=== PATIENT | female | born 1975 | race Caucasian/White ===

== ENCOUNTER 2017-06-19 12:45 | Emergency (ER) | payer BC, MEDICAID | END 2017-06-19 14:18 | disposition home or self-care (01) | LOC: E/R 12:45 | DX: H60.501 Unspecified acute noninfective otitis externa, right ear (principal); I10 Essential (primary) hypertension; Z79.82 Long term (current) use of aspirin | CPT/HCPCS: 99283 ==

== ENCOUNTER 2017-06-21 18:36 | Inpatient (IN) | payer BC, MEDICAID ==
[2017-06-21 21:12] LABS: ADD MAN DIFF? NO
[2017-06-21 21:14] LABS: BASOPHILS % 0.4 % (0.0-2.0); EOSINOPHILS # 0.2 10^3/ul (0.0-0.5); EOSINOPHILS % 1.5 % (0.0-7.0); HEMATOCRIT 35.6 % (37.0-47.0); HEMOGLOBIN 11.2 g/dl (12.0-16.0); LYMPHOCYTES # 2.4 10^3/ul (0.8-2.9); MEAN CORPUSCULAR HEMOGLOBIN 24.1 pg (29.0-33.0); MEAN CORPUSCULAR HGB CONC 31.5 g/dl (32.0-37.0); MEAN CORPUSCULAR VOLUME 76.7 fl (82.0-101.0); MEAN PLATELET VOLUME 9.2 fl (7.4-10.4); MONOCYTES % 9.7 % (0.0-11.0); NEUTROPHIL # 6.4 10^3/ul (1.6-7.5); PLATELET COUNT 471 10^3/UL (140-415); RED BLOOD COUNT 4.64 10^6/ul (4.20-5.40); RED CELL DISTRIBUTION WIDTH 14.2 % (11.5-14.5)
[2017-06-21 21:33] LABS: ALANINE AMINOTRANSFERASE 21 IU/L (13-69); ALBUMIN 4.2 g/dl (3.3-4.9); ALBUMIN/GLOBULIN RATIO 1.16; ALKALINE PHOSPHATASE 79 IU/L (42-121); ANION GAP 17 (8-16); ASPARTATE AMINO TRANSFERASE 11 IU/L (15-46); BLOOD UREA NITROGEN 17 mg/dl (7-20); CALCIUM 9.4 mg/dl (8.4-10.2); CARBON DIOXIDE 27 mmol/L (21-31); CHLORIDE 105 mmol/L (97-110); CREATININE 0.79 mg/dl (0.44-1.00); GLUCOSE 103 mg/dl (70-220); POTASSIUM 4.2 mmol/L (3.5-5.1); SODIUM 145 mmol/L (135-144); TOTAL PROTEIN 7.8 g/dl (6.1-8.1)
[2017-06-22] MEDS: VANCOMYCIN 1 GM (PMX) 250 ML IVPB (00:22)
[2017-06-22] MEDS ORDERED: ACETAMINOPHEN 325 MG TAB PO (01:30)
[2017-06-22] MEDS ORDERED: BISACODYL (EC) 5 MG TAB PO (01:30)
[2017-06-22] MEDS ORDERED: MAGNESIUM HYDROXIDE 30ML CUP PO (01:30)
[2017-06-22] MEDS ORDERED: NACL 0.9% 3 ML SYG IV (01:30)
[2017-06-22] MEDS ORDERED: DOCUSATE SODIUM 100 MG CAP PO (01:30)
[2017-06-22] MEDS ORDERED: VANCOMYCIN IV PER PHARMACY XX (01:30)
[2017-06-22] MEDS ORDERED: KETOROLAC 30 MG INJ IV (01:30)
[2017-06-22] MEDS ORDERED: HYDROmorphONE 0.5 MG/0.5 ML SYG IV (01:30)
[2017-06-22] MEDS: SOD CHLORIDE 0.9% 1,000 ML IV (01:51)
[2017-06-22] MEDS: PIPER-TAZO 3.375 GM IV (PMX) 100 ML IVPB ×4 (07:15→19:26)
[2017-06-22] MEDS: ATORVASTATIN 20 MG TAB PO (08:50)
[2017-06-22] MEDS: CYCLOBENZAPRINE 10 MG TAB PO (08:51)
[2017-06-22] MEDS: ASPIRIN (EC) 81 MG TAB PO (08:51)
[2017-06-22] MEDS: AMLODIPINE 5 MG TAB PO (08:51)
[2017-06-22] MEDS: FAMOTIDINE 20 MG TAB PO ×2 (08:51→20:33)
[2017-06-22] MEDS: VANCOMYCIN 750 MG in DEXTROSE 5% 150 ML IVPB ×2 (09:27→17:01)
[2017-06-22] MEDS ORDERED: CYCLOBENZAPRINE 10 MG TAB PO (11:30)
[2017-06-23] MEDS: PIPER-TAZO 3.375 GM IV (PMX) 100 ML IVPB ×5 (00:16→19:41)
[2017-06-23 00:51] LABS: VANCOMYCIN,TROUGH 13.3 ug/ml (10.0-20.0)
[2017-06-23] MEDS: VANCOMYCIN 750 MG in DEXTROSE 5% 150 ML IVPB ×3 (01:33→17:55)
[2017-06-23 05:30] LABS: ADD MAN DIFF? NO
[2017-06-23 05:37] LABS: BASOPHILS % 0.6 % (0.0-2.0); EOSINOPHILS # 0.3 10^3/ul (0.0-0.5); EOSINOPHILS % 3.9 % (0.0-7.0); HEMATOCRIT 32.3 % (37.0-47.0); HEMOGLOBIN 10.2 g/dl (12.0-16.0); LYMPHOCYTES # 2.1 10^3/ul (0.8-2.9); LYMPHOCYTES % 31.6 % (15.0-51.0); MEAN CORPUSCULAR HEMOGLOBIN 24.3 pg (29.0-33.0); MEAN CORPUSCULAR HGB CONC 31.6 g/dl (32.0-37.0); MEAN CORPUSCULAR VOLUME 77.1 fl (82.0-101.0); MEAN PLATELET VOLUME 9.3 fl (7.4-10.4); MONOCYTE # 0.8 10^3/ul (0.3-0.9); MONOCYTES % 12.6 % (0.0-11.0); NEUTROPHIL # 3.4 10^3/ul (1.6-7.5); PLATELET COUNT 418 10^3/UL (140-415); RED BLOOD COUNT 4.19 10^6/ul (4.20-5.40); RED CELL DISTRIBUTION WIDTH 14.2 % (11.5-14.5)
[2017-06-23 05:37] LABS: WHITE BLOOD COUNT 6.7 10^3/ul (4.8-10.8)
[2017-06-23 06:09] LABS: ALANINE AMINOTRANSFERASE 17 IU/L (13-69); ALBUMIN 3.6 g/dl (3.3-4.9); ALBUMIN/GLOBULIN RATIO 1.02; ALKALINE PHOSPHATASE 72 IU/L (42-121); ANION GAP 14 (8-16); ASPARTATE AMINO TRANSFERASE 14 IU/L (15-46); BILIRUBIN,INDIRECT 0.1 mg/dl (0-1.1); BILIRUBIN,TOTAL 0.1 mg/dl (0.2-1.3); BLOOD UREA NITROGEN 15 mg/dl (7-20); CALCIUM 8.8 mg/dl (8.4-10.2); CARBON DIOXIDE 28 mmol/L (21-31); CHLORIDE 107 mmol/L (97-110); GLUCOSE 84 mg/dl (70-220); MAGNESIUM 2.1 mg/dl (1.7-2.5); POTASSIUM 4.2 mmol/L (3.5-5.1); SODIUM 145 mmol/L (135-144); TOTAL PROTEIN 7.1 g/dl (6.1-8.1)
[2017-06-23] MEDS: FAMOTIDINE 20 MG TAB PO ×2 (09:07→21:31)
[2017-06-23] MEDS: ASPIRIN (EC) 81 MG TAB PO (09:07)
[2017-06-23] MEDS: ATORVASTATIN 20 MG TAB PO (09:07)
[2017-06-23] MEDS: AMLODIPINE 5 MG TAB PO (10:29)
[2017-06-23] MEDS: HYDROCODONE/APAP (5/325) TAB PO (19:43)
[2017-06-23] MEDS: DEXAMETHASONE 10 MG/ML 1 ML INJ IV (21:30)
[2017-06-23] MEDS: ONDANSETRON 4 MG INJ IV (22:54)
[2017-06-24] MEDS: PIPER-TAZO 3.375 GM IV (PMX) 100 ML IVPB ×2 (00:20→05:49)
[2017-06-24] MEDS: VANCOMYCIN 750 MG in DEXTROSE 5% 150 ML IVPB ×2 (01:34→08:20)
[2017-06-24 05:09] LABS: ADD MAN DIFF? NO
[2017-06-24 05:14] LABS: BASOPHILS % 0.2 % (0.0-2.0); HEMATOCRIT 36.9 % (37.0-47.0); HEMOGLOBIN 11.5 g/dl (12.0-16.0); LYMPHOCYTES # 0.7 10^3/ul (0.8-2.9); LYMPHOCYTES % 6.1 % (15.0-51.0); MEAN CORPUSCULAR HEMOGLOBIN 23.7 pg (29.0-33.0); MEAN CORPUSCULAR HGB CONC 31.2 g/dl (32.0-37.0); MEAN CORPUSCULAR VOLUME 76.1 fl (82.0-101.0); MEAN PLATELET VOLUME 9.3 fl (7.4-10.4); MONOCYTE # 0.1 10^3/ul (0.3-0.9); MONOCYTES % 0.6 % (0.0-11.0); NEUTROPHIL # 10.3 10^3/ul (1.6-7.5); NEUTROPHILS % 92.9 % (39.0-77.0); PLATELET COUNT 471 10^3/UL (140-415); RED BLOOD COUNT 4.85 10^6/ul (4.20-5.40); RED CELL DISTRIBUTION WIDTH 13.8 % (11.5-14.5)
[2017-06-24 05:14] LABS: WHITE BLOOD COUNT 11.1 10^3/ul (4.8-10.8)
[2017-06-24 05:42] LABS: ANION GAP 21 (8-16); BLOOD UREA NITROGEN 20 mg/dl (7-20); CALCIUM 9.5 mg/dl (8.4-10.2); CARBON DIOXIDE 25 mmol/L (21-31); CHLORIDE 105 mmol/L (97-110); CREATININE 1.85 mg/dl (0.44-1.00); GLUCOSE 145 mg/dl (70-220); POTASSIUM 5.1 mmol/L (3.5-5.1); SODIUM 146 mmol/L (135-144)
[2017-06-24 05:51] LABS: MAGNESIUM 2.3 mg/dl (1.7-2.5)
[2017-06-24] MEDS: DEXAMETHASONE 10 MG/ML 1 ML INJ IV ×2 (05:52→12:51)
[2017-06-24] MEDS: ASPIRIN (EC) 81 MG TAB PO (08:20)
[2017-06-24] MEDS: ATORVASTATIN 20 MG TAB PO (08:20)
[2017-06-24] MEDS: FAMOTIDINE 20 MG TAB PO ×2 (08:21→21:48)
[2017-06-24] MEDS ORDERED: AMOXICILLIN/CLAV 875 MG TAB PO (11:00)
[2017-06-24] MEDS: SOD CHLORIDE 0.9% 500 ML IV (11:00)
[2017-06-24 12:02] LABS: ANION GAP 22 (8-16); BLOOD UREA NITROGEN 21 mg/dl (7-20); CALCIUM 9.6 mg/dl (8.4-10.2); CARBON DIOXIDE 23 mmol/L (21-31); CHLORIDE 104 mmol/L (97-110); CREATININE 1.95 mg/dl (0.44-1.00); GLUCOSE 163 mg/dl (70-220); POTASSIUM 4.1 mmol/L (3.5-5.1); SODIUM 145 mmol/L (135-144)
[2017-06-24] MEDS: AMLODIPINE 5 MG TAB PO (12:51)
[2017-06-24] MEDS: AMOXICILLIN/CLAV 500 MG TAB PO ×2 (12:51→21:48)
[2017-06-24] MEDS: SOD CHLORIDE 0.9% 1,000 ML IV (15:12)
[2017-06-25] MEDS: SOD CHLORIDE 0.9% 1,000 ML IV (04:20)
[2017-06-25] MEDS: AMOXICILLIN/CLAV 500 MG TAB PO (09:34)
[2017-06-25] MEDS: AMLODIPINE 5 MG TAB PO (09:35)
[2017-06-25] MEDS: ASPIRIN (EC) 81 MG TAB PO (09:35)
[2017-06-25] MEDS: FAMOTIDINE 20 MG TAB PO (09:35)
[2017-06-25] MEDS: ATORVASTATIN 20 MG TAB PO (09:35)
[2017-06-25 10:57] LABS: ADD MAN DIFF? NO
[2017-06-25 10:59] LABS: ABNORMAL IP MESSAGE 1; BASOPHILS % 0.1 % (0.0-2.0); HEMATOCRIT 34.5 % (37.0-47.0); HEMOGLOBIN 10.8 g/dl (12.0-16.0); LYMPHOCYTES # 1.3 10^3/ul (0.8-2.9); LYMPHOCYTES % 5.6 % (15.0-51.0); MEAN CORPUSCULAR HEMOGLOBIN 24.1 pg (29.0-33.0); MEAN CORPUSCULAR HGB CONC 31.3 g/dl (32.0-37.0); MEAN CORPUSCULAR VOLUME 76.8 fl (82.0-101.0); MEAN PLATELET VOLUME 9.3 fl (7.4-10.4); MONOCYTES % 9.1 % (0.0-11.0); NEUTROPHILS % 84.7 % (39.0-77.0); PLATELET COUNT 463 10^3/UL (140-415); RED BLOOD COUNT 4.49 10^6/ul (4.20-5.40); RED CELL DISTRIBUTION WIDTH 14.4 % (11.5-14.5)
[2017-06-25 10:59] LABS: WHITE BLOOD COUNT 22.5 10^3/ul (4.8-10.8)
[2017-06-25 11:10] LABS: POSITIVE DIFF @See below
[2017-06-25 12:53] LABS: ANION GAP 21 (8-16); BLOOD UREA NITROGEN 29 mg/dl (7-20); CALCIUM 9.2 mg/dl (8.4-10.2); CARBON DIOXIDE 23 mmol/L (21-31); CHLORIDE 109 mmol/L (97-110); CREATININE 1.65 mg/dl (0.44-1.00); GLUCOSE 123 mg/dl (70-220); POTASSIUM 3.7 mmol/L (3.5-5.1); SODIUM 149 mmol/L (135-144)
== END 2017-06-25 13:06 | disposition left against medical advice (07) | DRG 152 ==
LOC: E/R 18:36 → MS3 06-22 01:08
DX: H70.001 Acute mastoiditis without complications, right ear (principal); R65.11 Systemic inflammatory response syndrome (SIRS) of non-infectious origin with acute organ dysfunction; N17.9 Acute kidney failure, unspecified; I10 Essential (primary) hypertension; H72.91 Unspecified perforation of tympanic membrane, right ear; H65.191 Other acute nonsuppurative otitis media, right ear; J01.90 Acute sinusitis, unspecified; E78.00 Pure hypercholesterolemia, unspecified
CPT/HCPCS: 36415; 70480; 80048; 80053; 80202; 83735; 85025; 87040; 96365; 96366; 96367; 96376; 99285-25

== ENCOUNTER 2017-06-29 21:18 | Emergency (ER) | payer BC, MEDICAID ==
[2017-06-29] MEDS: BUPIVACAINE 0.25% (MPF) 10 ML 10 ML VIAL INJ (23:14)
== END 2017-06-30 | disposition home or self-care (01) ==
LOC: FTE 06-30
DX: M62.830 Muscle spasm of back (principal); I10 Essential (primary) hypertension
CPT/HCPCS: 20552; 99283-25

== ENCOUNTER 2018-06-04 00:38 | Emergency (ER) | payer BC, MEDICAID ==
[2018-06-04] MEDS: HYDROCODONE/APAP (10/325) TAB PO (06:18)
== END 2018-06-04 06:27 | disposition home or self-care (01) ==
LOC: FTE 00:38
DX: H66.91 Otitis media, unspecified, right ear (principal); J40 Bronchitis, not specified as acute or chronic; J32.9 Chronic sinusitis, unspecified; I10 Essential (primary) hypertension; R40.2142 Coma scale, eyes open, spontaneous, at arrival to emergency department; R40.2252 Coma scale, best verbal response, oriented, at arrival to emergency department; R40.2362 Coma scale, best motor response, obeys commands, at arrival to emergency department; Z79.82 Long term (current) use of aspirin
CPT/HCPCS: 99283